=== PATIENT | female | born 1970 | race Caucasian/White ===

== ENCOUNTER 2022-02-05 21:51 | Emergency (ER) | payer BC ==
[2022-02-06 00:22] LABS: Absolute Lymphocytes (CBC) 1.7 K/uL (0.7-4.9); Hematocrit 30.2 % (36.0-45.0); MPV 9.3 fL (7.6-11.3); RBC Red Blood Cell Count 4.49 M/uL (3.86-4.86)
[2022-02-06 00:29] LABS: Magnesium 2.4 mg/dL (1.8-2.4); Potassium 3.4 mmol/L (3.5-5.1)
--- NOTE | 2022-02-06 01:04 | EDPHYS ---
Physician Documentation [facility] Name: Pham Jennings Age: 51 yrs Sex: Female : 1970 Arrival Date: 02/05/2022 Time: 21:54 Bed 12 Private MD: ED Physician Kaveh Hurd HPI: 02/05 22:38 This 51 yrs old Female presents to ER via Ambulatory with complaints of Mold Exposure. cp 22:38 The patient has shortness of breath with light activity. cp 22:38 Onset: The symptoms/episode began/occurred 2 day(s) ago. cp 22:38 Duration: The symptoms are intermittent. Associated signs and symptoms: Pertinent cp positives: chest pain, Pertinent negatives: productive cough, diaphoresis, fever, vomiting. Patient reports being exposed to mold growing in her apartment. 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 - Social history:: Smoking status: Patient denies any tobacco usage or history of. ROS: 22:45 Constitutional: Negative for body aches, chills, fever, poor PO intake. cp 22:45 Cardiovascular: Positive for chest pain, Negative for edema, palpitations. cp 22:45 Respiratory: Positive for shortness of breath, on exertion. Negative for wheezing. 22:45 : Negative for burning with urination, vaginal bleeding, vaginal discharge. 22:45 Skin: Positive for diffusely, pruritus and burning. Exam: 22:50 Constitutional: The patient appears in no acute distress, alert, awake, comfortable, cp non-diaphoretic, non-toxic, well developed, well nourished. 22:50 Head/Face: Normocephalic, atraumatic. cp 22:50 Eyes: Periorbital structures: appear normal, Conjunctiva: normal, no exudate, no injection, Sclera: no appreciated abnormality, Lids and lashes: appear normal, bilaterally. 22:50 ENT: External ear(s): are unremarkable, Nose: is normal, Mouth: Lips: moist, Oral mucosa: pink and intact, moist, Posterior pharynx: Airway: no evidence of obstruction, patent. 22:50 Neck: ROM/movement: is normal, is supple, without pain, no range of motions limitations. 22:50 Chest/axilla: Inspection: normal, Palpation: is normal, no crepitus, no tenderness. 22:50 Cardiovascular: Rate: normal, Rhythm: regular, Heart sounds: murmur, not appreciated, cp Edema: is not appreciated, JVD: is not appreciated. 22:50 Respiratory: the patient does not display signs of respiratory distress, Respirations: cp normal, no use of accessory muscles, no retractions, labored breathing, is not present, Breath sounds: are clear throughout, no decreased breath sounds, no stridor, no wheezing. 22:50 Abdomen/GI: Exam negative for discomfort, distension, guarding, Inspection: abdomen appears normal. 22:50 Back: pain, is absent, ROM is normal. 22:50 Skin: no rash present. 22:50 Neuro: Orientation: to person, place \T\ time. Mentation: is normal. 02/06 00:27 ECG was reviewed by the Attending Physician. cp Vital Signs: 02/05 22:15 BP 136 / 66; Pulse 73; Resp 18; Temp 98.1; Pulse Ox 100% ; Weight 71.6 kg; Height 5 ft. vc1 7 in. (170.18 cm); Pain 0/10; 22:15 Body Mass Index 24.72 (71.60 kg, 170.18 cm) vc1 MDM: 23:29 Patient medically screened. cp 23:30 Differential diagnosis: Anemia Anxiety Reaction asthma, Bronchitis Chronic Obstructive cp Pulmonary Disease Myocardial Infarction pneumonia, Pneumothorax pulmonary edema, Pulmonary Embolism Unstable Angina. 02/06 01:03 Data reviewed: vital signs, nurses notes, lab test result(s), radiologic studies, plain cp films. 01:03 Test interpretation: by ED physician or midlevel provider: ECG, plain radiologic cp studies. Counseling: I had a detailed discussion with the patient and/or guardian regarding: the historical points, exam findings, and any diagnostic results supporting the discharge/admit diagnosis, lab results, radiology results, the need for outpatient follow up, for definitive care, an allergy/cryptologic support specialist, a family practitioner, to return to the emergency department if symptoms worsen or persist or if there are any questions or concerns that arise at home. 02/05 22:40 Order name: Basic Metabolic Panel; Complete Time: 00:30 cp 02/06 00:31 Interpretation: K 3.4; CL 109; GLUC 107; GFR 81. cp 02/05 22:40 Order name: CBC with Diff cp 02/06 00:31 Interpretation: Normal except: HGB 8.7; HCT 30.2; MCV 67.2; MCH 19.5; MCHC 29.0; RDW cp 18.7. 02/05 22:40 Order name: D-Dimer; Complete Time: 00:30 cp 02/05 22:40 Order name: Magnesium; Complete Time: 00:30 cp 02/05 22:40 Order name: NT PRO-BNP; Complete Time: 00:30 cp 02/05 22:40 Order name: Troponin HS; Complete Time: 00:30 cp 02/05 22:40 Order name: XRAY Chest (1 view) cp 02/05 22:40 Order name: EKG; Complete Time: 22:41 cp 02/06 00:27 Order name: CBC Smear Scan EDMS 02/05 22:40 Order name: EKG - Nurse/Tech; Complete Time: 00:36 cp 02/05 22:40 Order name: Labs collected and sent; Complete Time: 00:03 cp 02/05 22:40 Order name: O2 Per Protocol; Complete Time: 00:03 cp 02/05 22:40 Order name: O2 Sat Monitoring; Complete Time: 00:03 cp EC:27 Rate is 51 beats/min. Rhythm is regular. NE interval is normal. QRS interval is normal. cp QT interval is normal. T waves are Inverted in lead aVR. Interpreted by me. Reviewed by me. Administered Medications: 01:14 Drug: Potassium Effervescent Tablet 25 mEq Route: PO; lp1 01:23 Follow up: Response: Medication administered at discharge. lp1 Disposition: 04:09 Co-signature as Attending Physician, Kaveh Hurd MD. rn Disposition Summary: 02/06/22 01:03 Discharge Ordered Location: Home cp Condition: Stable cp Diagnosis - Anemia, unspecified cp - Contact with and (suspected) exposure to mold (toxic) cp Followup: cp - With: Private Physician - When: 2 - 3 days - Reason: Recheck today's complaints Followup: cp - With: Yonatan Osman MD - When: 2 - 3 days - Reason: Recheck today's complaints Discharge Instructions: - Discharge Summary Sheet cp - Anemia cp - Iron-Rich Diet cp - Preventing Iron Deficiency Anemia, Adult cp Forms: - Medication Reconciliation Form cp - Thank You Letter cp - Antibiotic Education cp - Prescription Opioid Use cp Prescriptions: - Ferrous Sulfate 325 mg (65 mg Iron) Oral Tablet - take 1 tablet by ORAL route 1-2 times daily; 30 tablet; Refills: 0, Product cp Selection Permitted Signatures: Dispatcher [employer] EDMS Kaveh Hurd MD MD rn Pena, Laura RN RN lp1 Diogenes Romeo PA PA cp Roro Ochoa RN RN vc1 Corrections: (The following items were deleted from the chart) 00:03 08 22:40 IV Saline Lock ordered. cp lp1
--- NOTE | 2022-02-06 01:04 | ER ---
Nurse's Notes [facility] Name: Pham Jennings Age: 51 yrs Sex: Female : 1970 Arrival Date: 02/05/2022 Time: 21:54 Bed 12 Private MD: Diagnosis: Anemia, unspecified;Contact with and (suspected) exposure to mold (toxic) Presentation: 02/05 22:15 Chief complaint: Patient states: "I have been breathing in mold for the last two weeks, vc1 my skin is on fire, I'm breaking out in hives, I am having joint pain, I feel like an elephant is sitting on my chest, and last week I coughed up blood and had a little bit of blood in my nose (it was pink). I stayed out of my apartment for a while but the last few days I have been there trying to get my stuff out and I think I od'd on it. My skin, my urine and my excrement smell like mold. That's all I can smell or taste.". Coronavirus screen: Vaccine status: Patient reports being unvaccinated. At this time, the client does not indicate any symptoms associated with coronavirus-19. Ebola Screen: No symptoms or risks identified at this time. Initial Sepsis Screen: Does the patient meet any 2 criteria? No. Patient's initial sepsis screen is negative. Does the patient have a suspected source of infection? No. Patient's initial sepsis screen is negative. Risk Assessment: Do you want to hurt yourself or someone else? Patient reports no desire to harm self or others. Onset of symptoms is unknown. 22:15 Method Of Arrival: Ambulatory vc1 22:15 Acuity: KINSEY 3 vc1 Triage Assessment: 22:20 General: Appears in no apparent distress. Behavior is appropriate for age. Pain: Denies vc1 pain. Respiratory: Airway is patent Respiratory effort is even, unlabored, Respiratory pattern is regular, symmetrical. 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 - Social history:: Smoking status: Patient denies any tobacco usage or history of. Screenin/09 00:06 Abuse screen: Denies threats or abuse. Denies injuries from another. Nutritional lp1 screening: No deficits noted. Tuberculosis screening: No symptoms or risk factors identified. Fall Risk None identified. Assessment: 02/05 23:30 Reassessment: Patient declines to have COVID swab performed; Provider notified. lp1 23:49 Reassessment: Patient unable to tolerating peripheral IV start, IV DC'd per patient lp1 request. 02/06 00:03 General: Appears in no apparent distress. Behavior is calm, cooperative. Pain: lp1 Complains of pain in chest. Neuro: Level of Consciousness is awake, alert, obeys commands, Oriented to person, place, time, situation. Cardiovascular: Patient's skin is warm and dry. Respiratory: Respiratory effort is even, unlabored. GI: No signs and/or symptoms were reported involving the gastrointestinal system. : Reports urinary odor. EENT: No signs and/or symptoms were reported regarding the EENT system. Derm: Skin is pink, warm \\T\\ dry. Musculoskeletal: No deficits noted. 01:23 Reassessment: Patient appears in no apparent distress at this time. Patient is alert, lp1 oriented x 3, equal unlabored respirations, skin warm/dry/pink. Vital Signs: 02/05 22:15 BP 136 / 66; Pulse 73; Resp 18; Temp 98.1; Pulse Ox 100% ; Weight 71.6 kg; Height 5 ft. vc1 7 in. (170.18 cm); Pain 0/10; 22:15 Body Mass Index 24.72 (71.60 kg, 170.18 cm) vc1 ED Course: 21:54 Patient arrived in ED. ja2 22:00 Diogenes Romeo PA is PHCP. cp 22:00 Kaveh Hurd MD is Attending Physician. cp 22:20 Triage completed. vc1 22:20 Arm band placed on right wrist. vc1 23:37 XRAY Chest (1 view) In Process Unspecified. EDMS 23:49 Missed attempt(s): 22 gauge in right antecubital area. lp1 02/06 00:02 Initial lab(s) drawn, by me, sent to lab. lp1 00:06 Patient has correct armband on for positive identification. lp1 00:07 Jeimy Yu, RN is Primary Nurse. lp1 00:07 No provider procedures requiring assistance completed. lp1 01:05 Yonatan Osman MD is Referral Physician. cp 01:22 Patient did not have IV access during this emergency room visit. lp1 Administered Medications: 01:14 Drug: Potassium Effervescent Tablet 25 mEq Route: PO; lp1 01:23 Follow up: Response: Medication administered at discharge. lp1 Medication: 00:06 VIS not applicable for this client. lp1 Outcome: 01:03 Discharge ordered by . cp 01:22 Discharged to home ambulatory. lp1 01:22 Condition: good 01:22 Discharge instructions given to patient, Instructed on discharge instructions, follow up and referral plans. Demonstrated understanding of instructions, follow-up care. 01:23 Patient left the ED. lp1 Signatures: Dispatcher [employer] EDMS Jeimy Yu, RN RN lp1 Diogenes Romeo PA PA cp Alexander, Jessica [facility] Roro Ochoa RN RN vc1
[2022-02-06] MEDS ORDERED: POTASSIUM 25 MEQ EFFERV TAB ONE (01:11)
[2022-02-06 01:21] LABS: Anisocytosis 1+; Blood Morphology Comment NOTED (NOT SEEN); Hypochromasia 2+; Macrocytosis 1+; Ovalocytes 1+; Platelet Estimate ADEQ; Polychromasia 1+; Stomatocytes 1+; Teardrop Cell 1+; White Blood Cell Scan OK (OK)
[2022-02-06 01:31] VITALS: BP 136/66; TEMP 98.1; O2SAT 100
--- NOTE | 2022-02-06 13:30 | RAD REPORT ---
EXAM DESCRIPTION: RAD - Chest Single View - 02/05/2022 11:35 pm CLINICAL HISTORY: 51 years, Female, Chest pain COMPARISON: None. FINDINGS: Single view of the chest was obtained portable. No prior films are available for compariso n. The cardiomediastinal silhouette demonstrate to be unremarkable. The heart is not enlarged. The thoracic aorta is unremarkable. Calcified granuloma within the right midlung. Costophrenic angles are sharp. No areas of consolidation or masses are seen. The rest of the soft tissue and bony struct ures demonstrate to be unremarkable. IMPRESSION: No acute cardiopulmonary disease seen. Electronically signed by: Bakari Deal MD 02/05/2022 11:59 PM CDT Due to temporary technical issues with the PACS/Fluency reporting system, reports are being signed by the in house radiologists without review as a courtesy to insure prompt reporting. The interpreting radiologist is fully responsible for the content of the report.
--- NOTE | 2022-02-06 14:18 | EKG ---
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
== END 2022-02-06 01:23 | disposition home or self-care (01) ==
LOC: ER 21:51
DX: Z77.120 Contact with and (suspected) exposure to mold (toxic) (principal); D64.9 Anemia, unspecified; R07.9 Chest pain, unspecified
CPT/HCPCS: 36415; 71045; 80048; 83735; 83880; 84484; 85025; 85379; 93005; 99283